=== PATIENT | female | born 1990 | race Caucasian/White ===

== ENCOUNTER 2018-03-27 22:06 | Emergency (ER) | payer OTHER ==
[~2018-03-27] VITALS: Ht 160 cm; Wt 72.7 kg
[2018-03-27 22:13] VITALS: BP 147/77; TEMP 99
[2018-03-27] MEDS ORDERED: DOXYCYCLINE HY100 MG PO (23:30)
[2018-03-27 23:38] VITALS: PULSE 96
[2018-03-28] MEDS ORDERED: FLAGYL500 MG PO (03:27)
== END 2018-03-27 23:38 | disposition home or self-care (01) ==
LOC: COL.ER 22:06
DX: S61.552A Open bite of left wrist, initial encounter (principal); W54.0XXA Bitten by dog, initial encounter; Z88.0 Allergy status to penicillin